=== PATIENT | male | born 1990 | race Caucasian/White ===

== ENCOUNTER 2018-10-05 21:32 | Emergency (ER) | payer SELFPAY ==
[~2018-10-05] VITALS: Ht 170.2 cm; Wt 93.9 kg
[2018-10-05 21:41] VITALS: Ht 170.2 cm; Wt 93.9 kg
[2018-10-05 22:49] VITALS: BP 185/80
== END 2018-10-05 22:49 | disposition home or self-care (01) ==
LOC: ED 21:32
DX: K02.9 Dental caries, unspecified (principal)
CPT/HCPCS: J1885